=== PATIENT | female | born 1975 | race Caucasian/White ===

== ENCOUNTER 2017-03-31 14:43 | Emergency (ER) | payer OTHER ==
[~2017-03-31] VITALS: Ht 154.9 cm; Wt 65.8 kg
[~2017-03-31 14:43] MED LIST: AMIT50 PO; BUSP15 PO; Bactrim Ds Tab1 EACH PO; CEPH500 PO; CYCL10 PO; GABA300 PO; LORA.5 PO; Naprosyn500 MG PO; Norco 5-325 Ta1 EACH PO; Percocet 5-3251 EACH PO; Zoloft100 MG PO
[2017-03-31] MEDS ORDERED: Norco 5-325 Ta1 EACH PO (15:11)
== END 2017-03-31 15:16 | disposition home or self-care (01) ==
LOC: ER 14:43
DX: S92.424A Nondisplaced fracture of distal phalanx of right great toe, initial encounter for closed fracture (principal); Z88.6 Allergy status to analgesic agent; Z79.899 Other long term (current) drug therapy; F17.210 Nicotine dependence, cigarettes, uncomplicated; W22.8XXA Striking against or struck by other objects, initial encounter
CPT/HCPCS: 73630; 99283